=== PATIENT | male | born 1980 | race Caucasian/White ===

== ENCOUNTER → 2019-01-31 | Outpatient (CLI) | payer BC ==
[~2019-01-31] MED LIST: ACETAMINOPHEN-1 EAC1 PO; BACLOFEN20 MG PO; CARAFATE 1 GM TA1 G1 PO; FLEXERIL PO; IBUPROFEN 800800 MG PO; MEDROLDOSEPACK PO; MOBIC7.5 MG PO; NABUMETONE 750750 M1 PO; ZANAFLEX4 MG PO; ZANTAC 150MG T150 MG PO
== END ==
LOC: M.ULTRA 15:11
DX: I86.1 Scrotal varices (principal); N50.3 Cyst of epididymis